=== PATIENT | female | born 1955 | race Hispanic/Latino ===

== ENCOUNTER 2024-09-12 10:05 | Outpatient (CLI) | payer OTHER ==
[2024-09-12] MEDS ORDERED: Iopamidol 370 76% 100 ML VIAL ONE (11:19)
== END 2024-09-12 10:06 | disposition home or self-care (01) ==
LOC: CSHCT 10:05
PROVIDERS: ATTEND Physician Assistant
DX: I87.1 Compression of vein (principal); I86.8 Varicose veins of other specified sites; K80.20 Calculus of gallbladder without cholecystitis without obstruction; K42.9 Umbilical hernia without obstruction or gangrene
CPT/HCPCS: 74177; 82565; Q9967